=== PATIENT | male | born 1995 | race Two or more races ===

== ENCOUNTER 2016-11-21 22:10 | Emergency (ER) | payer SELFPAY ==
[2016-11-21] MEDS ORDERED: PROCHLORPERAZINE EDISYLATE INJ 10 MG/2 ML VIAL IV ONE (23:20)
[2016-11-21] MEDS ORDERED: DIPHENHYDRAMINE HCL 50 MG/ML VIAL IV ONE (23:20)
[2016-11-21] MEDS ORDERED: NORMAL SALINE 1000 ML 1,000 ML IV ONE (23:20)
[2016-11-21] MEDS ORDERED: KETOROLAC TROMETHAMINE INJ/PF 30 MG/1 ML SDV IV ONE (23:20)
--- NOTE | 2016-11-22 02:29 | ER Document Report ---
ED General - General Chief Complaint: Dizziness Stated Complaint: DIZZY,HEADACHE Time Seen by Provider: 11/21/16 23:19 Notes: Patient is a 21-year-old male without past mental history who presents with 3 days of headache and sensation of intermittent lightheadedness. Describes the pain in his head is a dull, constant, moderate pain over the bitemporal areas. Is worsened by lights and sounds. States it was gradual in onset and has gotten progressively worsens that time. He notes that sometimes when the pain is quite severe he feels lightheaded. Notes that he often has poor by mouth intake and exercises regularly. He denies any associated weakness, numbness, neck pain, fever or altered mental status. Nothing improves or worsens his symptoms. He has not seen a primary care doctor regarding todays concerns. TRAVEL OUTSIDE OF THE [place] IN LAST 30 DAYS: No Past Medical History - General Information source: Patient - Social History Smoking Status: Never Smoker Frequency of alcohol use: None Drug Abuse: None Lives with: Spouse/Significant other Family History: Reviewed & Not Pertinent Renal/ Medical History: Denies: Hx Peritoneal Dialysis Review of Systems - Review of Systems Notes: Constitutional: Negative for fever. HENT: Negative for sore throat. Eyes: Negative for visual changes. Cardiovascular: Negative for chest pain. Respiratory: Negative for shortness of breath. Gastrointestinal: Negative for abdominal pain, vomiting or diarrhea. Genitourinary: Negative for dysuria. Musculoskeletal: Negative for back pain. Skin: Negative for rash. Neurological: Positive for headaches, negative for weakness or numbness. 10 point ROS negative except as marked above and in HPI. Physical Exam - Vital signs Vitals: Temp Pulse Resp BP Pulse Ox 98.3 F 93 18 148/66 H 99 11/21/16 22:13 11/21/16 22:13 11/21/16 22:13 11/21/16 22:13 11/21/16 22:13 Notes: PHYSICAL EXAMINATION: GENERAL: Well-appearing, well-nourished and in no acute distress. HEAD: Atraumatic, normocephalic. EYES: Pupils equal round and reactive to light, extraocular movements intact, sclera anicteric, conjunctiva are normal. ENT: nares patent, oropharynx clear without exudates. Moist mucous membranes. NECK: Normal range of motion, supple without lymphadenopathy LUNGS: Breath sounds clear to auscultation bilaterally and equal. No wheezes rales or rhonchi. HEART: Regular rate and rhythm without murmurs ABDOMEN: Soft, nontender, normoactive bowel sounds. No guarding, no rebound. No masses appreciated. EXTREMITIES: Normal range of motion, no pitting or edema. No cyanosis. NEUROLOGICAL: Face symmetric. Tongue protrudes midline. Extraocular motions intact. Pupils are 2 mm and equally reactive. Normal speech, normal gait. 5 out of 5 strength in both the distal and proximal upper and lower extremities bilaterally. Sensation is grossly intact throughout. Finger to nose testing normal. Pronator drift normal. PSYCH: Normal mood, normal affect. SKIN: Warm, Dry, normal turgor, no rashes or lesions noted. Course - Re-evaluation Re-evalutation: 11/22/16 02:29 Presentation of a headache that appears to be most consistent with tension versus migrainous type headache. Patient also notes associated lightheadedness without vertigo. Headache was not maximal in onset, patient has no focal neurologic deficits, no nuchal rigidity, vital signs within normal limits, no papilledema, and patient is overall well in appearance. Based on clinical history and examination I do not suspect an acute subarachnoid hemorrhage, dural venous sinus thrombosis, acute meningitis, or intercranial mass. Given my low clinical suspicion for any acute life-threatening etiology, I do not feel advanced neuro imaging or laboratory testing is indicated at this time. Patient did have complete resolution of his symptoms after receiving IV fluids and a migraine cocktail. At this time will discharge with return precautions and follow-up recommendations. Verbal discharge instructions given at the bedside and opportunity for questions given. Medication warnings reviewed. Patient is in agreement with this plan and has verbalized understanding of return precautions and the need for primary care follow-up in the next 24-72 hours. - Vital Signs Vital signs: Temp Pulse Resp BP Pulse Ox 98.3 F 93 18 148/66 H 99 11/21/16 22:13 11/21/16 22:13 11/21/16 22:13 11/21/16 22:13 11/21/16 22:13 Discharge - Discharge Clinical Impression: Lightheadedness Headache Qualifiers: Headache type: unspecified Headache chronicity pattern: acute headache Intractability: not intractable Qualified Code(s): R51 - Headache Condition: Good Disposition: HOME, SELF-CARE
[2016-11-22 03:06] VITALS: BP 120/62
== END 2016-11-22 01:25 | disposition home or self-care (01) ==
LOC: ER 22:10
DX: R51 Headache (principal); R42 Dizziness and giddiness
CPT/HCPCS: 99283; 96361; 96374; 96375; J1200; J1885; J0780; J7030

== ENCOUNTER 2016-12-02 13:52 | Emergency (ER) | payer SELFPAY ==
--- NOTE | 2016-12-02 14:56 | ER Document Report ---
ED Medical Screen (RME) - General TRAVEL OUTSIDE OF THE [place] IN LAST 30 DAYS: No <ISELA WERNER - Last Filed: 12/02/16 16:53> <RADHA RODRÍGUEZ - Last Filed: 12/02/16 18:11> - General Chief Complaint: Headache >24 hrs old Stated Complaint: SHORTNESS OF BREATH Time Seen by Provider: 12/02/16 14:49 Notes: 21-year-old male presenting to the emergency department for dizziness, palpitations, and pressure in his hands. Patient states his palpitations have been going on for a couple of months and is dizzy and this has been occurring for 1 week. Patient also states that he has a constant beeping sound in his ears. Patient also complains of some upper back, but denies any chest pain or shortness of breath. Patient states 2 weeks ago he quit going to the gym and quit using some supplements such as creatinine, protein, and test booster. ( ISELA WERNER) - Related Data Allergies/Adverse Reactions: No Known Allergies Allergy (Verified 12/02/16 14:43) Past Medical History Renal/ Medical History: Denies: Hx Peritoneal Dialysis - Immunizations Hx Diphtheria, Pertussis, Tetanus Vaccination: Yes <ISELA WERNER - Last Filed: 12/02/16 16:53> Physical Exam <ISELA WERNER - Last Filed: 12/02/16 16:53> <RADHA RODRÍGUEZ - Last Filed: 12/02/16 18:11> - Vital signs Vitals: Temp Pulse Resp BP Pulse Ox 98.3 F 99 18 152/65 H 98 12/02/16 14:17 12/02/16 14:17 12/02/16 14:17 12/02/16 14:17 12/02/16 14:17 - Notes Notes: GENERAL: Alert, interacts well. No acute distress. ENT: Oral mucosa moist, tongue midline. TMs are slightly retracted, postnasal drip, clear rhinorrhea. LUNGS: Clear to auscultation bilaterally, no wheezes, rales, or rhonchi. No respiratory distress. HEART: Mild tachycardia. (ISELA WERNER) Course - Laboratory Result Diagrams: 12/02/16 15:20 12/02/16 15:20 <ISELA WERNER - Last Filed: 12/02/16 16:53> - Laboratory Result Diagrams: 12/02/16 15:20 12/02/16 15:20 <RADHA RODRÍGUEZ - Last Filed: 12/02/16 18:11> - Vital Signs Vital signs: Temp Pulse Resp BP Pulse Ox 98.6 F 94 18 122/80 100 12/02/16 18:02 12/02/16 18:02 12/02/16 18:02 12/02/16 18:02 12/02/16 18:02 - Laboratory Laboratory results interpreted by me: 12/02/16 15:20 AST 15 L Total Protein 9.1 H Albumin 5.3 H Doctor's Discharge <ISELA WERNER - Last Filed: 12/02/16 16:53> <RADHA RODRÍGUEZ - Last Filed: 12/02/16 18:11> - Discharge Clinical Impression: Headache, Palpitations Disposition: HOME, SELF-CARE Additional Instructions: HEADACHE: The physician does not feel that the headache you are experiencing has a serious underlying cause. Most headaches are due to emotional stress, with resultant muscle tension (tension headache). Occasionally, headaches are secondary to changes in the blood vessels of the scalp (vascular headache and migraine headache). Sometimes, a headache is the first symptom of another developing illness, such as a viral infection. You have no evidence of stroke, bleeding, meningitis, or other serious cause of your headache. The treatment of headaches varies with the severity and cause of the pain. Not all headaches need pain shots. In fact, there is evidence that using narcotics for headaches may make them worse in the long run. The physician will determine the therapy that's in your best interest. If you develop a fever, if the headache is different from any you've previously experienced, or if the headache progressively worsens, then call your physician at once or go to the emergency room. FOLLOW-UP CARE: If you have been referred to a physician for follow-up care, call the physician s office for an appointment as you were instructed or within the next two days. If you experience worsening or a significant change in your symptoms, notify the physician immediately or return to the Emergency Department at any time for re-evaluation. Palpitations (Irregular/Rapid Heartrate) Irregular or rapid heartbeat is called "palpitation." To diagnose the cause of palpitation, we have to "catch it in the act" with an EKG. Sinus Tachycardia: This is a rapid (but NORMAL) rhythm that can be due to fever, pain, anxiety, lack of sleep, over-exertion, or drugs. Cold medications, caffeine, and diet pills are particularly likely to cause tachycardia. Usually , all that's required is rest, reassurance, and avoiding caffeine, alcohol, nicotine, and unnecessary medicines. Paroxysmal Atrial Tachycardia (PAT): This abnormally rapid heartbeat is caused by a "short circuit" in the electrical system of the heart. It is not dangerous, unless other heart disease is present. These attacks of PAT may occur occasionally for years. Medication is available for treatment. Paroxysmal Atrial Fibrillation or Atrial Flutter: This is irregular electrical activity in the upper heart chamber. These abnormal rhythms often occur with valve disease or in hearts damaged by hardening of the arteries. These rhythms usually require further testing, for example a cardiac echo. Premature Beats: Extra beats occur more commonly after caffeine, nicotine , alcohol, cold pills, diet pills. Emotional stress or fatigue also provoke them. Extra beats are only dangerous when heart disease is present. They usually need no treatment. If they're frequent, or if evidence of heart disease develops, medication can be given to suppress them. If we were unable to "catch" the palpitations on EKG, you should try to get an EKG immediately if the symptoms begin again. Contact the physician at once if you develop persistent lightheadedness, shortness of breath, chest pain , or swelling of the ankles. Referrals: [facility] [NO LOCAL MD] - Follow up as needed Scribe Documentation - Scribe Written by Nelia:: Nelia Hansen, 12/02/2016 16:00 acting as scribe for :: Ashely <ISELA WERNER - Last Filed: 12/02/16 16:53>
[2016-12-02 15:33] LABS: ABSOLUTE LYMPHOCYTES (AUTO) 1.8 10^3/uL (0.5-4.7); ABSOLUTE MONOCYTES (AUTO) 0.7 10^3/uL (0.1-1.4); ABSOLUTE NEUT (AUTO) 6.8 10^3/uL (1.7-8.2); BASOPHILS % (AUTO) 0.4 % (0-2); EOSINOPHILS % (AUTO) 0.1 % (0-6); HEMATOCRIT 48.4 % (37.9-51.0); HEMOGLOBIN 16.5 g/dL (13.5-17.0); HGB HCT DIFFERENCE 1.1; LYMPHOCYTES % (AUTO) 19.3 % (13-45); MEAN CORPUSCULAR HEMOGLOBIN 31.7 pg (27.0-33.4); MEAN CORPUSCULAR VOLUME 93 fl (80-97); MONOCYTES % (AUTO) 7.5 % (3-13); RED BLOOD COUNT 5.19 10^6/uL (4.35-5.55); RED CELL DISTRIBUTION WIDTH 12.2 % (11.5-14.0); SEGMENTED NEUTROPHILS % (AUTO) 72.7 % (42-78); WHITE BLOOD COUNT 9.4 10^3/uL (4.0-10.5)
[2016-12-02 15:43] LABS: ALANINE AMINOTRANSFERASE 31 U/L (21-72); ALBUMIN 5.3 g/dL (3.5-5.0); ALKALINE PHOSPHATASE 48 U/L (38-126); ANION GAP 15 (5-19); ASPARTATE AMINO TRANSFERASE 15 U/L (17-59); BILIRUBIN,DIRECT 0.4 mg/dL (0.0-0.4); BILIRUBIN,TOTAL 1.3 mg/dL (0.2-1.3); BLOOD UREA NITROGEN 15 mg/dL (7-20); CARBON DIOXIDE 25 mmol/L (22-30); CHLORIDE 102 mmol/L (98-107); CREATININE RESULT 1.01 mg/dL (0.52-1.25); GLUCOSE 109 mg/dL (75-110); POTASSIUM 4.2 mmol/L (3.6-5.0); SODIUM 142.3 mmol/L (137-145); TOTAL PROTEIN 9.1 g/dL (6.3-8.2)
[2016-12-02 15:48] LABS: URINE BARBITURATES SCREEN NEGATIVE; URINE METHADONE SCREEN NEGATIVE; URINE OPIATES LOW NEGATIVE; URINE PHENCYCLIDINE SCREEN NEGATIVE
[2016-12-02 16:08] LABS: FREE T3 4.32 pg/mL (2.77-5.27)
--- NOTE | 2016-12-02 16:17 | ER Document Report ---
ED General - General Chief Complaint: Headache >24 hrs old Stated Complaint: SHORTNESS OF BREATH Time Seen by Provider: 12/02/16 14:49 Notes: Patient is a 21-year-old male, no PMHx, presents with intermittent episodes of feeling like his heart is pounding, shortness of breath and then a dull frontal headache over the past 2 weeks. His symptoms started after he was working out and using pre-workout powder with large amount of caffeine and creatine. He has stopped the pre-workout powder. While in the ER, he feels his heart racing when his HR is in the 90's on the monitor. He denies syncope, leg swelling, fevers, cough, nausea, vomiting, current headache, anxiety or abdominal pain TRAVEL OUTSIDE OF THE [place] IN LAST 30 DAYS: No - Related Data Allergies/Adverse Reactions: No Known Allergies Allergy (Verified 12/02/16 14:43) Past Medical History - General Information source: Patient - Social History Smoking Status: Never Smoker Family History: Reviewed & Not Pertinent Patient has suicidal ideation: No Patient has homicidal ideation: No Renal/ Medical History: Denies: Hx Peritoneal Dialysis - Immunizations Hx Diphtheria, Pertussis, Tetanus Vaccination: Yes Review of Systems - Review of Systems Notes: REVIEW OF SYSTEMS: CONSTITUTIONAL: -fevers, -chills EENT: -eye pain, -difficulty swallowing, -nasal congestion CARDIOVASCULAR:-chest pain, -syncope. RESPIRATORY: -cough, +SOB GASTROINTESTINAL: -abdominal pain, -nausea, -vomiting, -diarrhea GENITOURINARY: -dysuria, -hematuria MUSCULOSKELETAL: -back pain, -neck pain SKIN: -rash or skin lesions. HEMATOLOGIC: -easy bruising or bleeding. LYMPHATIC: -swollen, enlarged glands. NEUROLOGICAL: -altered mental status or loss of consciousness, +headache, - neurologic symptoms PSYCHIATRIC: -anxiety, -depression. ALL OTHER SYSTEMS REVIEWED AND NEGATIVE. Physical Exam - Vital signs Vitals: Temp Pulse Resp BP Pulse Ox 98.3 F 99 18 152/65 H 98 12/02/16 14:17 12/02/16 14:17 12/02/16 14:17 12/02/16 14:17 12/02/16 14:17 - Notes Notes: PHYSICAL EXAMINATION: GENERAL: Well-appearing, well-nourished and in no acute distress. HEAD: Atraumatic, normocephalic. EYES: Pupils equal round and reactive to light, extraocular movements intact, sclera anicteric, conjunctiva are normal. ENT: nares patent, oropharynx clear without exudates. Moist mucous membranes. NECK: Normal range of motion, supple without lymphadenopathy LUNGS: Breath sounds clear to auscultation bilaterally and equal. No wheezes rales or rhonchi. HEART: Regular rate and rhythm without murmurs ABDOMEN: Soft, nontender, normoactive bowel sounds. No guarding, no rebound. No masses appreciated. EXTREMITIES: Normal range of motion, no pitting or edema. No cyanosis. NEUROLOGICAL: Cranial nerves grossly intact. Normal speech, normal gait. Normal sensory and motor exams. PSYCH: Normal mood, normal affect. SKIN: Warm, Dry, normal turgor, no rashes or lesions noted. Course - Re-evaluation Re-evalutation: No arrhythmias on monitor when patient feels his heart racing. Labs are unremarkable. EKG did not show evidence of WPW, long QT syndrome or Brugada. He does not have a headache and says that his headaches resolves with Motrin at home. Instructed him to follow-up with his primary care physician for further evaluation and treatment. Also instructed to watch his caffeine use. - Vital Signs Vital signs: Temp Pulse Resp BP Pulse Ox 98.3 F 99 10 L 152/65 H 100 12/02/16 14:17 12/02/16 14:17 12/02/16 16:10 12/02/16 14:17 12/02/16 16:10 - Laboratory Result Diagrams: 12/02/16 15:20 12/02/16 15:20 Laboratory results interpreted by pa: 12/02/16 15:20 AST 15 L Total Protein 9.1 H Albumin 5.3 H - EKG Interpretation by Md EKG shows normal: Sinus rhythm, Caruthers, Intervals, QRS Complexes, ST-T Waves Rate: Normal Discharge - Discharge Clinical Impression: Palpitations Headache Qualifiers: Headache type: unspecified Headache chronicity pattern: chronic headache Intractability: not intractable Qualified Code(s): R51 - Headache Condition: Good Disposition: HOME, SELF-CARE Additional Instructions: HEADACHE: The physician does not feel that the headache you are experiencing has a serious underlying cause. Most headaches are due to emotional stress, with resultant muscle tension (tension headache). Occasionally, headaches are secondary to changes in the blood vessels of the scalp (vascular headache and migraine headache). Sometimes, a headache is the first symptom of another developing illness, such as a viral infection. You have no evidence of stroke, bleeding, meningitis, or other serious cause of your headache. The treatment of headaches varies with the severity and cause of the pain. Not all headaches need pain shots. In fact, there is evidence that using narcotics for headaches may make them worse in the long run. The physician will determine the therapy that's in your best interest. If you develop a fever, if the headache is different from any you've previously experienced, or if the headache progressively worsens, then call your physician at once or go to the emergency room. FOLLOW-UP CARE: If you have been referred to a physician for follow-up care, call the physician s office for an appointment as you were instructed or within the next two days. If you experience worsening or a significant change in your symptoms, notify the physician immediately or return to the Emergency Department at any time for re-evaluation. Palpitations (Irregular/Rapid Heartrate) Irregular or rapid heartbeat is called "palpitation." To diagnose the cause of palpitation, we have to "catch it in the act" with an EKG. Sinus Tachycardia: This is a rapid (but NORMAL) rhythm that can be due to fever, pain, anxiety, lack of sleep, over-exertion, or drugs. Cold medications, caffeine, and diet pills are particularly likely to cause tachycardia. Usually , all that's required is rest, reassurance, and avoiding caffeine, alcohol, nicotine, and unnecessary medicines. Paroxysmal Atrial Tachycardia (PAT): This abnormally rapid heartbeat is caused by a "short circuit" in the electrical system of the heart. It is not dangerous, unless other heart disease is present. These attacks of PAT may occur occasionally for years. Medication is available for treatment. Paroxysmal Atrial Fibrillation or Atrial Flutter: This is irregular electrical activity in the upper heart chamber. These abnormal rhythms often occur with valve disease or in hearts damaged by hardening of the arteries. These rhythms usually require further testing, for example a cardiac echo. Premature Beats: Extra beats occur more commonly after caffeine, nicotine , alcohol, cold pills, diet pills. Emotional stress or fatigue also provoke them. Extra beats are only dangerous when heart disease is present. They usually need no treatment. If they're frequent, or if evidence of heart disease develops, medication can be given to suppress them. If we were unable to "catch" the palpitations on EKG, you should try to get an EKG immediately if the symptoms begin again. Contact the physician at once if you develop persistent lightheadedness, shortness of breath, chest pain , or swelling of the ankles. [facility] [NO [facility]AL MD] - Follow up as needed
[2016-12-02 16:21] LABS: THYROID STIMULATING HORMONE 1.59 uIU/mL (0.47-4.68)
[2016-12-02 18:03] VITALS: BP 122/80
--- NOTE | 2016-12-02 19:33 | EKG REPORT ---
SEVERITY:- NORMAL ECG - SINUS RHYTHM : Confirmed by: Dylan Lamb MD 02-Dec-2016 19:32:24
== END 2016-12-02 18:03 | disposition home or self-care (01) ==
LOC: ER 13:52
DX: R51 Headache (principal); R00.2 Palpitations; R06.02 Shortness of breath
CPT/HCPCS: 36415; 80053; 80307; 84439; 84443; 84481; 85025; 93005; 93010; 99284

== ENCOUNTER 2018-05-16 13:42 | Emergency (ER) | payer SELFPAY ==
[2018-05-16] MEDS ORDERED: MECLIZINE HCL 25 MG TABLET PO ONE (16:20)
--- NOTE | 2018-05-16 16:21 | ER Document Report ---
ED Medical Screen (RME) - General Chief Complaint: Dizziness Stated Complaint: DIZZY, EAR PAIN, NAUSEA, HEADACHE Time Seen by Provider: 05/16/18 16:20 Mode of Arrival: Ambulatory Information source: Patient Notes: Patient presents complaining of intermittent dizziness in which she feels faint off and on over the past 2 days. Patient denies any recent illness, chest pain or dyspnea. Patient without any significant medical history. I have greeted and performed a rapid initial assessment of this patient. A comprehensive ED assessment and evaluation of the patient, analysis of test results and completion of the medical decision making process will be conducted by additional ED providers. TRAVEL OUTSIDE OF THE [place] IN LAST 30 DAYS: No - Related Data Allergies/Adverse Reactions: No Known Allergies Allergy (Verified 12/02/16 14:43) Past Medical History Pulmonary Medical History: Reports: Hx Asthma Renal/ Medical History: Denies: Hx Peritoneal Dialysis - Immunizations Hx Diphtheria, Pertussis, Tetanus Vaccination: Yes Physical Exam - Vital signs Vitals: Temp Pulse Resp BP Pulse Ox 98.6 F 94 16 146/82 H 100 05/16/18 14:01 05/16/18 14:01 05/16/18 14:01 05/16/18 14:01 05/16/18 14:01 - Respiratory Respiratory status: No respiratory distress Chest status: Nontender Breath sounds: Normal. No: Rales, Rhonchi, Stridor, Wheezing Chest palpation: Normal - Cardiovascular Rhythm: Regular Heart sounds: S1 appreciated, S2 appreciated Course - Vital Signs Vital signs: Temp Pulse Resp BP Pulse Ox 98.6 F 94 16 146/82 H 100 05/16/18 14:01 05/16/18 14:01 05/16/18 14:01 05/16/18 14:01 05/16/18 14:01
[2018-05-16 17:07] LABS: ABSOLUTE EOSINOPHILS # (AUTO) 0.1 10^3/uL (0.0-0.6); ABSOLUTE LYMPHOCYTES (AUTO) 2.2 10^3/uL (0.5-4.7); ABSOLUTE MONOCYTES (AUTO) 0.7 10^3/uL (0.1-1.4); BASOPHILS % (AUTO) 0.4 % (0-2); EOSINOPHILS % (AUTO) 0.5 % (0-6); HEMATOCRIT 47.4 % (37.9-51.0); HEMOGLOBIN 16.8 g/dL (13.5-17.0); LYMPHOCYTES % (AUTO) 22.3 % (13-45); MEAN CORPUSCULAR HEMOGLOBIN 32.3 pg (27.0-33.4); MEAN CORPUSCULAR HGB CONC 35.4 g/dL (32.0-36.0); MEAN CORPUSCULAR VOLUME 91 fl (80-97); MONOCYTES % (AUTO) 6.5 % (3-13); PLATELET COUNT 293 10^3/uL (150-450); RED BLOOD COUNT 5.19 10^6/uL (4.35-5.55); RED CELL DISTRIBUTION WIDTH 12.1 % (11.5-14.0); SEGMENTED NEUTROPHILS % (AUTO) 70.3 % (42-78); TOTAL CELLS COUNTED % (AUTO) 100 %
[2018-05-16 17:18] LABS: ANION GAP 15 (5-19); BLOOD UREA NITROGEN 14 mg/dL (7-20); CALCIUM 10.1 mg/dL (8.4-10.2); CARBON DIOXIDE 28 mmol/L (22-30); CHLORIDE 101 mmol/L (98-107); GLUCOSE 96 mg/dL (75-110); POTASSIUM 4.4 mmol/L (3.6-5.0); SODIUM 144.4 mmol/L (137-145)
--- NOTE | 2018-05-16 18:39 | ER Document Report ---
ED General - General Chief Complaint: Dizziness Stated Complaint: DIZZY, EAR PAIN, NAUSEA, HEADACHE Time Seen by Provider: 05/16/18 16:20 Mode of Arrival: Ambulatory Notes: Patient is a 23-year-old male without chronic medical problems who presents with 1 week of intermittent periods of lightheadedness, fullness of the ears and fullness at the base of the neck. He states that the symptoms come on abruptly, last several seconds and then spontaneously resolved. He states that this only happens when he is standing, generally when he has been at work for quite some time. He states that he had similar symptoms many times in the past but has not had them for quite some time so wanted to be reevaluated. He denies any history of structural heart disease or dysrhythmia. He denies chest pain, palpitations or shortness of breath. He denies vertigo, weakness, numbness or headache. Nothing seems to improve or worsen his symptoms. He states that his symptoms have been attributed to dehydration in the past. Denies symptoms currently. He has not seen his general doctor regarding today' s concerns. TRAVEL OUTSIDE OF THE [place] IN LAST 30 DAYS: No - Related Data Allergies/Adverse Reactions: No Known Allergies Allergy (Verified 12/02/16 14:43) Past Medical History - General Information source: Patient - Social History Smoking Status: Never Smoker Chew tobacco use (# tins/day): No Frequency of alcohol use: None Drug Abuse: None Lives with: Spouse/Significant other Family History: Reviewed & Not Pertinent Patient has suicidal ideation: No Patient has homicidal ideation: No Pulmonary Medical History: Reports: Hx Asthma Renal/ Medical History: Denies: Hx Peritoneal Dialysis - Immunizations Hx Diphtheria, Pertussis, Tetanus Vaccination: Yes Review of Systems - Review of Systems Notes: Constitutional: Negative for fever. HENT: Negative for sore throat. Eyes: Negative for visual changes. Cardiovascular: Negative for chest pain. Positive for lightheadedness and near syncope Respiratory: Negative for shortness of breath. Gastrointestinal: Negative for abdominal pain, vomiting or diarrhea. Genitourinary: Negative for dysuria. Musculoskeletal: Negative for back pain. Skin: Negative for rash. Neurological: Negative for headaches, weakness or numbness. 10 point ROS negative except as marked above and in HPI. Physical Exam - Vital signs Vitals: Temp Pulse Resp BP Pulse Ox 98.6 F 94 16 146/82 H 100 05/16/18 14:01 05/16/18 14:01 05/16/18 14:01 05/16/18 14:01 05/16/18 14:01 Interpretation: Hypertensive Notes: PHYSICAL EXAMINATION: GENERAL: Well-appearing, well-nourished and in no acute distress. HEAD: Atraumatic, normocephalic. EYES: Pupils equal round and reactive to light, extraocular movements intact, sclera anicteric, conjunctiva are normal. ENT: nares patent, oropharynx clear without exudates. Moist mucous membranes. NECK: Normal range of motion, supple without lymphadenopathy LUNGS: Breath sounds clear to auscultation bilaterally and equal. No wheezes rales or rhonchi. HEART: Regular rate and rhythm without murmurs ABDOMEN: Soft, nontender, normoactive bowel sounds. No guarding, no rebound. No masses appreciated. EXTREMITIES: Normal range of motion, no pitting or edema. No cyanosis. NEUROLOGICAL: Face symmetric. Tongue protrudes midline. Extraocular motions intact. Pupils are 2 mm and equally reactive. Normal speech, normal gait. 5 out of 5 strength in both the distal and proximal upper and lower extremities bilaterally. Sensation is grossly intact throughout. Finger to nose testing normal. Pronator drift normal. PSYCH: Normal mood, normal affect. SKIN: Warm, Dry, normal turgor, no rashes or lesions noted. Course - Re-evaluation Re-evalutation: 05/16/18 18:36 Presentation of recurrent near syncope of unclear etiology. Patient normotensive , alert, without focal neurologic deficits at time of arrival. Denies syncope was during exertion. No preceding symptoms of palpitations, chest pain, or shortness of breath. Patient asymptomatic at time of arrival. EKG is without evidence of HCOM, right heart strain, ST changes to suggest ischemia, prolong QTc, delta wave, epsilon wave, or Brugada syndrome. Patient denies any family history of sudden cardiac , personal history of of structural heart disease. Patient denies any symptoms to suggest an acute PE, NM, TAD, SAH, seizure, or acute GI bleed as the etiology of their syncope today. On exam, no murmurs to suggest critical aortic stenosis as possible etiology. Based on overall clinical history, exam findings, vitals, and patients appearance, I feel it is safe for patient to be discharged home at this time with close outpatient follow-up and strict return precautions. Patient is in agreement with this plan, has verbalized indications for return to ED, and questions have been answered. I have also asked the patient follow-up with cardiology for evaluation with an echocardiogram to definitively rule out structural heart disease given the recurrent nature of his symptoms. - Vital Signs Vital signs: Temp Pulse Resp BP Pulse Ox 98.7 F 95 16 138/71 H 99 05/16/18 18:43 05/16/18 18:43 05/16/18 18:43 05/16/18 18:43 05/16/18 18:43 - Laboratory Result Diagrams: 05/16/18 16:49 05/16/18 16:49 - EKG Interpretation by Me Additional EKG results interpreted by me: 05/16/18 18:38 Sinus tachycardia. Rate 104. No ST elevations or depressions. QTC is 448. Discharge - Discharge Clinical Impression: Near syncope, Lightheadedness Condition: Good Disposition: HOME, SELF-CARE Additional Instructions: Your symptoms appear to be most consistent with episodes of near syncope. It is important that she follow-up with cardiology for an echocardiogram to definitively rule out any structural heart disease. I think the likelihood of this is low but should to be definitively ruled out. Your labs are otherwise normal today. Please be sure to drink plenty of fluids throughout the day as dehydration could certainly be contributing to your symptoms. Return if you pass out, develop chest pain, palpitations, shortness of breath, weakness, numbness or any other symptoms that are worrisome to you. Please avoid sports or vigorous physical activity until cleared by cardiology after echocardiogram. Referrals: SERINA PULIDO MD [ACTIVE STAFF] - Follow up tomorrow
[2018-05-16 18:45] VITALS: BP 138/71
--- NOTE | 2018-05-16 22:20 | EKG REPORT ---
SEVERITY:- OTHERWISE NORMAL ECG - SINUS TACHYCARDIA : Confirmed by: Magdalene Stock MD 16-May-2018 22:19:55
== END 2018-05-16 18:53 | disposition home or self-care (01) ==
LOC: ER 13:42
DX: R55 Syncope and collapse (principal); R42 Dizziness and giddiness; H92.09 Otalgia, unspecified ear; R11.0 Nausea; R51 Headache
CPT/HCPCS: 36415; 80048; 85025; 93005; 93010; 99284